=== PATIENT | female | born 1955 | race Caucasian/White ===

== ENCOUNTER 2016-06-02 20:04 | Emergency (ER) | payer MEDICARE ==
[2015-12-19 12:41] VITALS: BMI 31.2
[~2016-06-02 20:04] MED LIST: FLAGYL500 MG PO; NAPROSYN500 MG PO; OXYBUTYNIN CHLOR5 MG PO; PROTONIX20 MG PO; ROBAXIN500 MG PO; SYNTHROID88 MCG PO; TRAZODONE HCL50 MG PO; ZANTAC150 MG PO; ZOCOR10 MG PO; ZOLOFT100 MG PO; ZOLOFT25 MG
[2016-06-02 20:48] LABS: BASOPHILS 0.5 % (0.0-2.0); EOSINOPHILS 4.3 % (0-7); HEMATOCRIT 40.2 % (36.0-48.0); HEMOGLOBIN 12.3 g/dL (12-16); IMMATURE GRANULOCYTES 0.2 % (0-5); LYMPHOCYTES 15.1 % (15-50); MCH 27.3 pg (26.0-34.0); MCHC 30.6 g/dL (31.0-37.0); MCV 89.1 fL (80.0-100.0); MONOCYTES 11.2 % (2-11); NEUTROPHILS 68.7 % (40-80); RBC 4.51 10x6/uL (4.00-5.40); RDW 14.9 % (11.5-14.5); WBC 9.9 10x3/uL (4.8-10.8)
[2016-06-02 20:49] LABS: PLATELET COUNT 184 10x3/uL (130-400)
[2016-06-02 20:50] LABS: APPEARANCE CLEAR (CLEAR); BILIRUBIN NEGATIVE (NEGATIVE); COLOR YELLOW (YELLOW); GLUCOSE NEGATIVE (NEGATIVE); KETONE NEGATIVE (NEGATIVE); LEUKOCYTE ESTERASE NEGATIVE (NEGATIVE); NITRITE NEGATIVE (NEGATIVE); PROTEIN NEGATIVE (NEGATIVE); UROBILINOGEN NORMAL (NORMAL)
[2016-06-02 20:55] LABS: ANION GAP 11.4 mmol/L (8-16); CALCIUM 8.5 mg/dL (8.5-10.1); CARBON DIOXIDE 28.9 mmol/L (21.0-32.0); CREATININE - SERUM 1.1 mg/dL (0.6-1.3); POTASSIUM - SERUM 3.3 mmol/L (3.5-5.1)
[2016-06-03 01:26] LABS: ALBUMIN 3.3 g/dL (3.4-5.0); BILIRUBIN - TOTAL 0.23 mg/dL (0.2-1.3); PROTEIN - SERUM 6.9 g/dL (6.4-8.2)
== END 2016-06-03 01:13 | disposition home or self-care (01) ==
LOC: D.ER 20:04
PROVIDERS: Nurse Practitioner Acute Care
DX: R10.9 Unspecified abdominal pain (principal); I10 Essential (primary) hypertension

== ENCOUNTER → 2016-06-30 10:30 | Outpatient (CLI) | payer MEDICARE ==
[2015-12-19 12:41] VITALS: BMI 31.2
== END | disposition home or self-care (01) ==
LOC: D.CT 10:30
DX: R55 Syncope and collapse (principal)

== ENCOUNTER → 2016-07-03 10:59 | Outpatient (CLI) | payer MEDICARE ==
[2015-12-19 12:41] VITALS: BMI 31.2
== END | disposition home or self-care (01) ==
LOC: D.CT 10:59
DX: R55 Syncope and collapse (principal)

== ENCOUNTER 2017-11-13 20:22 | Observation (INO) | payer MEDICARE ==
[~2017-11-13] VITALS: Ht 165.1 cm; Wt 85.5 kg
[2017-11-13] MEDS ORDERED: BUPROPION HCL150 M1 PO (20:35)
[2017-11-13] MEDS ORDERED: TIROSINT88 MCG PO (20:35)
[2017-11-13] MEDS ORDERED: LISINOPRIL10 MG PO (20:35)
[2017-11-13] MEDS ORDERED: PENICILLIN V P500 MG PO (20:35)
[2017-11-13 20:55] LABS: BASOPHILS 0.1 % (0-2); EOSINOPHILS 1.1 % (0-7); HEMATOCRIT 40.7 % (36.0-48.0); HEMOGLOBIN 13.2 g/dL (12-16); IMMATURE GRANULOCYTES 0.3 % (0-5); LYMPHOCYTES 6.1 % (15-50); MCH 28.2 pg (26.0-34.0); MCHC 32.4 g/dL (31.0-37.0); MONOCYTES 5.4 % (2-11); RBC 4.68 10x6/uL (4.00-5.40); RDW 13.9 % (11.5-14.5); WBC 7.4 10x3/uL (4.8-10.8)
[2017-11-13 20:57] LABS: PLATELET COUNT 137 10x3/uL (130-400)
[2017-11-13 21:08] LABS: ALBUMIN 3.5 g/dL (3.4-5.0); BILIRUBIN - TOTAL 0.57 mg/dL (0.2-1.3); CALCIUM 8.5 mg/dL (8.5-10.1); CARBON DIOXIDE 23.4 mmol/L (21.0-32.0); CREATININE - SERUM 1.6 mg/dL (0.6-1.3); POTASSIUM - SERUM 3.4 mmol/L (3.5-5.1); PROTEIN - SERUM 7.2 g/dL (6.4-8.2)
[2017-11-13 21:10] LABS: APPEARANCE SLT CLOUDY (CLEAR); COLOR DK YELLOW (YELLOW)
[2017-11-13 21:11] LABS: BILIRUBIN 1+ (NEGATIVE); GLUCOSE NEGATIVE (NEGATIVE); KETONE NEGATIVE (NEGATIVE); NITRITE NEGATIVE (NEGATIVE); PROTEIN TRACE mg/dL (NEGATIVE)
[2017-11-13 21:12] LABS: BACTERIA MODERATE /hpf (NONE SEEN); EPITHELIAL CELLS 0-5 /hpf (0-5); HYALINE CAST 0-5 /lpf (NONE SEEN); RED CELLS - URINE 0-5 /hpf (0-5); WHITE CELLS - URINE 0-5 /hpf (0-5)
[2017-11-13 21:13] LABS: MUCUS >1+ /lpf (NONE SEEN)
[2017-11-13 22:36] VITALS: BP 136/64
[2017-11-13 23:31] VITALS: BP 121/56
[2017-11-14] VITALS (11 sets, daily range): BP systolic 102–139; BP diastolic 47–68; Ht 165.1 cm; Wt 85.5 kg
[2017-11-14] MEDS ORDERED: VITAMIN D250000 UNIT PO (02:47)
[2017-11-14] MEDS ORDERED: PROTONIX40 MG PO (02:50)
[2017-11-14] MEDS ORDERED: PENICILLIN V P500 MG PO (02:51)
[2017-11-14 06:22] LABS: BASOPHILS 0.8 % (0-2); EOSINOPHILS 1.2 % (0-7); HEMATOCRIT 36.8 % (36.0-48.0); HEMOGLOBIN 11.7 g/dL (12-16); IMMATURE GRANULOCYTES 0.2 % (0-5); MCH 27.7 pg (26.0-34.0); MCHC 31.8 g/dL (31.0-37.0); MEAN PLATELET VOLUME 11.3 fL (7.4-10.4); MONOCYTES 6.7 % (2-11); NEUTROPHILS 82.1 % (40-80); PLATELET COUNT 141 10x3/uL (130-400); RBC 4.23 10x6/uL (4.00-5.40); RDW 13.9 % (11.5-14.5)
[2017-11-14 06:28] LABS: WBC 5.2 10x3/uL (4.8-10.8)
[2017-11-14 06:37] LABS: ANION GAP 12.1 mmol/L (8-16); CALCIUM 7.4 mg/dL (8.5-10.1); CARBON DIOXIDE 23.9 mmol/L (21.0-32.0); CREATININE - SERUM 1.2 mg/dL (0.6-1.3)
[2017-11-14 10:33] LABS: MAGNESIUM - SERUM 2.2 mg/dL (1.8-2.4); PHOSPHOROUS 2.5 mg/dL (2.5-4.9)
[2017-11-15 04:20] VITALS: BP 125/65
[2017-11-15 06:09] LABS: BASOPHILS 1.1 % (0-2); EOSINOPHILS 9.2 % (0-7); HEMATOCRIT 33.4 % (36.0-48.0); HEMOGLOBIN 10.5 g/dL (12-16); MCH 27.6 pg (26.0-34.0); MCHC 31.4 g/dL (31.0-37.0); MCV 87.9 fL (80.0-100.0); MEAN PLATELET VOLUME 11.5 fL (7.4-10.4); MONOCYTES 10.9 % (2-11); NEUTROPHILS 30.8 % (40-80); PLATELET COUNT 129 10x3/uL (130-400); RDW 14.3 % (11.5-14.5)
[2017-11-15 06:14] LABS: WBC 3.6 10x3/uL (4.8-10.8)
[2017-11-15 06:34] LABS: ANION GAP 12.7 mmol/L (8-16); BILIRUBIN - TOTAL 0.12 mg/dL (0.2-1.3); CALCIUM 7.6 mg/dL (8.5-10.1); CARBON DIOXIDE 24.5 mmol/L (21.0-32.0); CREATININE - SERUM 0.9 mg/dL (0.6-1.3); POTASSIUM - SERUM 3.2 mmol/L (3.5-5.1)
[2017-11-15 06:38] LABS: ALBUMIN 2.5 g/dL (3.4-5.0); PROTEIN - SERUM 5.1 g/dL (6.4-8.2)
[2017-11-15 08:46] VITALS: BP 157/69
[2017-11-15 12:14] VITALS: BP 135/68
[2017-11-15 16:02] VITALS: BP 130/62
[2017-11-15 21:06] VITALS: BP 139/66
[2017-11-16 00:33] VITALS: BP 145/65
[2017-11-16 04:38] VITALS: BP 138/68
[2017-11-16 06:27] LABS: BASOPHILS 0.8 % (0-2); EOSINOPHILS 6.5 % (0-7); HEMATOCRIT 33.8 % (36.0-48.0); HEMOGLOBIN 10.8 g/dL (12-16); IMMATURE GRANULOCYTES 0.2 % (0-5); LYMPHOCYTES 38.3 % (15-50); MCH 27.8 pg (26.0-34.0); MCV 87.1 fL (80.0-100.0); MEAN PLATELET VOLUME 11.6 fL (7.4-10.4); MONOCYTES 8.1 % (2-11); NEUTROPHILS 46.1 % (40-80); RBC 3.88 10x6/uL (4.00-5.40); RDW 14.3 % (11.5-14.5)
[2017-11-16 06:42] LABS: PLATELET COUNT 173 10x3/uL (130-400)
[2017-11-16 07:11] LABS: ALBUMIN 2.7 g/dL (3.4-5.0); BILIRUBIN - TOTAL 0.19 mg/dL (0.2-1.3); CALCIUM 7.9 mg/dL (8.5-10.1); CARBON DIOXIDE 24.9 mmol/L (21.0-32.0); PROTEIN - SERUM 5.8 g/dL (6.4-8.2)
[2017-11-16 07:15] LABS: ANION GAP 12.1 mmol/L (8-16)
[2017-11-16 08:20] VITALS: BP 148/71
[2017-11-16 13:24] VITALS: BP 150/72
[2017-11-16 15:56] VITALS: BP 140/67
[2017-11-16] MEDS ORDERED: LEVAQUIN250 MG PO (15:56)
[2017-11-19 03:10] LABS: RMSF IGM 0.49 index (0.00-0.89)
[2017-11-23 10:19] LABS: F. TULARENSIS - IGG Negative (()); F. TULARENSIS - IGM Negative (())
[2017-11-24 16:13] LABS: EHRLICHIA CHAFF IGG Negative (Neg:<1:64); EHRLICHIA CHAFF IGM Negative (Neg:<1:20); HGE IGG TITER Negative (Neg:<1:64); HGE IGM TITER Negative (Neg:<1:20)
[2017-11-24 20:09] LABS: AEROBE ID Final report (())
[2017-11-25 09:17] LABS: OVA + PARASITE EXAM Final report (())
== END 2017-11-16 18:05 | disposition home or self-care (01) ==
LOC: D.ER 20:22 → D.MS 11-14 00:46 → OBSVTIME 11-14 00:46 → D.MS 11-16 18:05
PROVIDERS: Family Medicine
DX: N39.0 Urinary tract infection, site not specified (principal); I10 Essential (primary) hypertension; K21.9 Gastro-esophageal reflux disease without esophagitis; D64.9 Anemia, unspecified; D72.1 Eosinophilia; E87.6 Hypokalemia; N17.9 Acute kidney failure, unspecified; H54.8 Legal blindness, as defined in USA; F41.9 Anxiety disorder, unspecified; F32.9 Major depressive disorder, single episode, unspecified

== ENCOUNTER 2018-12-07 07:18 | Day surgery (SDC) | payer MEDICARE ==
[~2018-12-07] VITALS: Ht 165.1 cm; Wt 86.4 kg
[~2018-12-07 07:18] MED LIST changes: +BUPROPION HCL150 M1 PO; +LEVAQUIN250 MG PO; +LISINOPRIL10 MG PO; +PENICILLIN V P500 MG PO; +PROTONIX40 MG PO; +TIROSINT88 MCG PO; +VITAMIN D250000 UNIT PO
[2018-12-07 07:41] LABS: HEMATOCRIT 39.4 % (36.0-48.0); HEMOGLOBIN 13.2 g/dL (12-16); MCH 28.4 pg (26.0-34.0); MCHC 33.5 g/dL (31.0-37.0); MCV 84.7 fL (80.0-100.0); MEAN PLATELET VOLUME 10.7 fL (7.4-10.4); RBC 4.65 10x6/uL (4.00-5.40); RDW 14.9 % (11.5-14.5); WBC 5.5 10x3/uL (4.8-10.8)
[2018-12-07] MEDS ORDERED: FLUDROCORTISON0.1 MG PO (08:20)
[2018-12-07] MEDS ORDERED: NEURONTIN 300300 MG PO (08:21)
[2018-12-07] MEDS ORDERED: CYMBALTA30 MG PO (08:22)
[2018-12-07 08:40] VITALS: BP 151/75; Ht 165.1 cm; Wt 86.4 kg
--- NOTE | 2018-12-07 09:13 | NUR ---
DR. BRYAN NOTIFIED AND REVIEWED PT'S BEHAVIOR AND ASSESSMENT RESULTS. PT IS A LOW RISK PER DR. BRYAN. DR. BRYAN STATED TO GIVE RESOURCES TO PT AT TIME OF DISCHARGE. NO FURTHER ORDERS AT THIS TIME. RESOURCES REVIEWED WITH PT AND SHE VERBALIZED UNDERSTANDING.
--- NOTE | 2018-12-07 17:26 | OP ---
PATIENT NAME: GINGER ROLON MEDICAL RECORD: [id number] :51 LOCATION:[facility] ADMISSION DATE: SURGEON: SRINIVAS PEREIRA DO DATE OF OPERATION: 12/07/2018 PROCEDURE: EGD with biopsies. INDICATIONS FOR PROCEDURE: Epigastric pain, heartburn, nausea and vomiting, abnormal weight loss. SCOPE: Olympus video gastroscope. MEDICATIONS: Propofol 110 mg IV per anesthesia. ESTIMATED BLOOD LOSS: Minimal. COMPLICATIONS: None. FINDINGS AND DESCRIPTION OF PROCEDURE: Informed consent was given. The patient was made comfortable with the above medication. After reaching an adequate level of sedation by slow IV push, the patient was placed on her left side. The endoscope was advanced under direct visualization through the mouth to the second portion of the duodenum. The upper, middle, and lower thirds of the esophagus appeared normal. At the GE junction, there was evidence of LA class B reflux-induced esophagitis without ulcerations. The endoscope was advanced beyond the GE junction in the stomach and retroflexed to view the cardia, where a small sliding type hiatal hernia was present. In the cardia and proximal stomach body, there were patchy areas of erythema and small ulcerations. This was likely related to the hiatal hernia and retching. The main part of the body of the stomach appeared normal. As you approached the antrum and prepyloric regions, there were more patchy areas of erythema and granularity consistent with gastritis. Random cold forceps biopsies were taken from the proximal stomach and the antrum to submit for histopathology and to rule out the presence of H. pylori. The endoscope was advanced beyond the pylorus into the duodenum, which appeared normal down to the second portion. Random cold forceps biopsies were taken to submit for histopathology. The endoscope was withdrawn back to the GE junction and cold forceps biopsies were taken to rule out the presence of Diaz's esophagus. The endoscope was withdrawn from the patient. The patient tolerated the procedure well and there were no complications. IMPRESSIONS: 1. LA class B reflux-induced esophagitis and possible Diaz's esophagus. Biopsies taken. 2. Small sliding hiatal hernia. 3. Gastritis. PLAN AND RECOMMENDATIONS: 1. Discharge home when recovery parameters are met. 2. Follow up biopsy specimen results. 3. GERD diet and reflux precautions. 4. Continue current medications including pantoprazole 40 mg daily. A prescription will be given for Carafate suspension 1 gram t.i.d. p.r.n. 1 month. 5. Proceed with colonoscopy as scheduled. 6. If symptoms continue, consider evaluation of the gallbladder with ultrasound and possibly a PIPIDA to follow. If nausea and vomiting remain persistent, we OPERATIVE REPORT [id number] GINGER ROLON will consider a gastric emptying scan. TRANSINT:[id number] Voice Confirmation ID: [id number] DOCUMENT ID: [id number] SRINIVAS PEREIRA DO at 1726 CC: [id number] DICTATION DATE: 12/07/18 1007 [place] ENGINEER: 12/07/18 1118 [facility] 12/07/18 [place] [id number] [place] [address]
== END 2018-12-07 11:11 | disposition home or self-care (01) ==
LOC: D.OPS 07:18
PROVIDERS: Anesthesiology; ATTEND Internal Medicine Gastroenterology
DX: K21.0 Gastro-esophageal reflux disease with esophagitis (principal); K44.9 Diaphragmatic hernia without obstruction or gangrene; K29.70 Gastritis, unspecified, without bleeding; Z01.812 Encounter for preprocedural laboratory examination

== ENCOUNTER 2019-01-23 08:31 | Day surgery (SDC) | payer MEDICARE ==
[~2019-01-23] VITALS: Ht 165.1 cm; Wt 90.9 kg
[~2019-01-23 08:31] MED LIST changes: +CYMBALTA30 MG PO; +FLUDROCORTISON0.1 MG PO; +NEURONTIN 300300 MG PO
[2019-01-23 09:06] LABS: ANION GAP 13.1 mmol/L (8-16); CALCIUM 9.3 mg/dL (8.5-10.1); CARBON DIOXIDE 25.8 mmol/L (21.0-32.0); CREATININE - SERUM 1.2 mg/dL (0.6-1.3); POTASSIUM - SERUM 3.9 mmol/L (3.5-5.1)
[2019-01-23] MEDS ORDERED: ANTIBIOTIC (09:25)
[2019-01-23 09:33] VITALS: BP 138/66; Ht 165.1 cm; Wt 90.9 kg
[2019-01-23 10:08] LABS: HEMATOCRIT 40.2 % (36.0-48.0); HEMOGLOBIN 13.1 g/dL (12-16); MCH 28.1 pg (26.0-34.0); MCHC 32.6 g/dL (31.0-37.0); MCV 86.3 fL (80.0-100.0); MEAN PLATELET VOLUME 11.3 fL (7.4-10.4); RBC 4.66 10x6/uL (4.00-5.40); RDW 14.3 % (11.5-14.5); WBC 5.6 10x3/uL (4.8-10.8)
--- NOTE | 2019-01-26 07:40 | OP ---
PATIENT NAME: GINGER ROLON MEDICAL RECORD: [id number] :53 LOCATION:[facility] ADMISSION DATE: SURGEON: SRINIVAS PEREIRA DO DATE OF OPERATION: 01/23/2019 PROCEDURE: Colonoscopy with polypectomy. INDICATIONS FOR PROCEDURE: History of colon polyps, change in bowel habits, constipation, right lower quadrant abdominal pain, abnormal weight loss. SCOPE: Olympus video pediatric colonoscope. MEDICATIONS: Propofol 400 mg IV per anesthesia. WITHDRAWAL TIME: 16 minutes. ESTIMATED BLOOD LOSS: Minimal. COMPLICATIONS: None. FINDINGS: Informed consent was given. The patient was made comfortable with the above medication. After reaching an adequate level of sedation by slow IV push, the patient was placed on her left side. A digital rectal examination was performed and was normal. The endoscope was advanced under direct visualization through the rectum to the cecum, confirmed by the presence of the appendiceal orifice and ileocecal valve. The terminal ileum was briefly intubated. The endoscope was slowly withdrawn and mucosa was carefully examined. The prep quality was good. There were 5 polyps visualized on today's examination. One was located in the cecum. It was a benign appearing sessile polyp, which measured approximately 2-3 mm in diameter. It was removed using cold forceps. In the ascending colon, there were two separate benign-appearing sessile polyps, which ranged in size from 2-4 mm in diameter. They were both removed using cold forceps. In the transverse colon, there was a single benign-appearing polyp, which measured approximately 4 mm in diameter. It was removed using hot forceps. In the sigmoid colon, there was a benign appearing sessile polyp, which measured approximately 3-4 mm in diameter. It was removed using hot forceps. There was evidence of very mild diverticulosis involving the sigmoid colon. Retroflexion was performed in the rectum with a normal appearing rectal wall. The endoscope was withdrawn from the patient. The patient tolerated the procedure well and there were no complications. IMPRESSION: 1. Five polyps removed using a combination of cold and hot forceps. 2. Mild diverticulosis of the sigmoid colon. PLAN AND RECOMMENDATIONS: 1. Discharge home when recovery parameters are met. 2. Follow up biopsy specimen results. 3. High fiber diet. 4. Continue current medications. 5. Recall colonoscopy in 3 years. TRANSINT:[id number] Voice Confirmation ID: [id number] DOCUMENT ID: [id number] OPERATIVE REPORT [id number] GINGER ROLON NATHAN A DO at 0740 CC: [id number] DICTATION DATE: 01/23/19 1022 CORPORATE DEVELOPMENT OFFICER: 01/23/19 1107 [facility] 01/23/19 [place] [id number] [place] [id number]
== END 2019-01-23 11:10 | disposition home or self-care (01) ==
LOC: D.OPS 08:31
PROVIDERS: Anesthesiology; ATTEND Internal Medicine Gastroenterology
DX: K63.5 Polyp of colon (principal); D12.3 Benign neoplasm of transverse colon; K57.30 Diverticulosis of large intestine without perforation or abscess without bleeding; Z86.010 Personal history of colon polyps; K59.00 Constipation, unspecified; Z01.812 Encounter for preprocedural laboratory examination

== ENCOUNTER 2020-07-10 09:44 | Day surgery (SDC) | payer MEDICARE ==
[2019-01-23 09:33] VITALS: BMI 33.3
[~2020-07-10 09:44] MED LIST changes: +ANTIBIOTIC
[2020-07-10 10:17] LABS: HEMATOCRIT 41.2 % (36.0-48.0); HEMOGLOBIN 12.9 g/dL (12-16); MCH 27.7 pg (26.0-34.0); MCHC 31.3 g/dL (31.0-37.0); MCV 88.6 fL (80.0-100.0); MEAN PLATELET VOLUME 10.4 fL (7.4-10.4); RBC 4.65 10x6/uL (4.00-5.40); RDW 14.3 % (11.5-14.5); WBC 6.7 10x3/uL (4.8-10.8)
[2020-07-10] MEDS ORDERED: ZOFRAN4 MG PO (10:26)
[2020-07-10 10:33] LABS: ANION GAP 11.3 mmol/L (8-16); CALCIUM 9.1 mg/dL (8.5-10.1); CARBON DIOXIDE 25.8 mmol/L (21.0-32.0); CREATININE - SERUM 1.2 mg/dL (0.6-1.3); POTASSIUM - SERUM 4.1 mmol/L (3.5-5.1)
--- NOTE | 2020-07-10 11:20 | NUR ---
1038 PT REPORTS HAVING CHEST PAIN A WEEK AGO. STATES IT FELT LIKE "SOMETHING SITTING ON" HER CHEST. PT IS SCHEDULED FOR A CARDIAC STRESS TEST AT [facility] TOMORROW ON 07/11/20. DR ESPINO NOTIFIED. 1100 DR ESPINO AT PT'S BEDSIDE DISCUSSING CANCELLING EGD AND RESCHEDULING AFTER PT RECEIVES A CARDIAC CLEARANCE. PT UNDERSTANDS AND IS IN AGREEMENT WITH DR ESPINO. 1105 IV DC'D. CATHETER TIP INTACT. NO BLEEDING AT SITE. BANDAID APPLIED. 1111 PT DRESSED AND READY FOR DISCHARGE HOME. DISCHARGE INSTRUCTIONS GIVEN AND PT VOICES UNDERSTANDING OF INSTRUCTIONS.
== END 2020-07-10 11:11 | disposition home or self-care (01) ==
LOC: D.OPS 09:44
PROVIDERS: Anesthesiology; ATTEND Internal Medicine Gastroenterology
DX: R10.13 Epigastric pain (principal); R11.0 Nausea; R63.4 Abnormal weight loss; Z53.8 Procedure and treatment not carried out for other reasons